=== PATIENT | female | born 1965 ===

== ENCOUNTER 2017-08-02 00:47 | Observation (INO) | payer OTHER ==
--- NOTE | 2017-08-02 01:16 | ED PDOC ---
HPI: Chest Pain Time Seen by Provider: 08/02/17 01:04 Chief Complaint (Nursing): Chest Pain Chief Complaint (Provider): chest pain History Per: Patient History/Exam Limitations: no limitations Onset/Duration Of Symptoms: Hrs (3), Waxing/Waning Current Symptoms Are (Timing): Still Present Additional History Per: Patient Additional Complaint(s): 52 y/o female presents with intermittent substernal chest pressure x 3 hours. Symptoms started while sitting down. Patient notes having to take deep breaths to get air in when pressure present. Patient took 4 baby aspirin tablets prior to arrival. Denies fever, nausea/vomiting, cough, congestion, palpitations, abdominal pain, leg pain/swelling. Patient states she has not seen a doctor in over 2 years Patient recently flew here from [place] 07/21. Past Medical History Reviewed: Historical Data, Nursing Documentation, Vital Signs Vital Signs: Last Vital Signs Temp 98.2 F 08/02/17 00:51 Pulse 75 08/02/17 00:51 Resp 16 08/02/17 00:51 BP 138/96 H 08/02/17 00:51 Pulse Ox 97 08/02/17 04:00 - Medical History PMH: No Chronic Diseases - Surgical History Surgical History: No Surg Hx - Family History Family History: States: No Known Family Hx - Social History Current smoker - smoking cessation education provided: No Alcohol: None Drugs: Denies - Home Medications Home Medications: Ambulatory Orders Medication Instructions Recorded Cholecalciferol [Vitamin D 1000 IU] 5,000 iu PO DAILY 08/02/17 Omeprazole 20 mg PO DAILY 08/02/17 - Allergies Allergies/Adverse Reactions: Allergies Allergy/AdvReac Type Severity Reaction Status Date / Time No Known Allergies Allergy Verified 08/02/17 00:50 BROOK Risk Score for UA/NSTEMI - BROOK Risk Score Age > 64: NO 3 or more CAD Risk Factors: NO Known CAD (Stenosis greater than 50%): NO Aspirin use in past 7 days: NO Severe Angina: NO EKG ST changes greater than 0.5mm: NO Positive Cardiac Marker: NO BROOK Score: 0 Risk %: 5% Review of Systems ROS Statement: Except As Marked, All Systems Reviewed And Found Negative Cardiovascular: Positive for: Chest Pain Physical Exam - Reviewed Nursing Documentation Reviewed: Yes Vital Signs Reviewed: Yes - Physical Exam Appears: Positive for: Well, Non-toxic, No Acute Distress Skin: Positive for: Normal Color Eye Exam: Positive for: Normal appearance ENT: Positive for: Normal ENT Inspection Cardiovascular/Chest: Positive for: Regular Rate, Rhythm Respiratory: Positive for: Normal Breath Sounds Gastrointestinal/Abdominal: Positive for: Normal Exam Back: Positive for: Normal Inspection Extremity: Positive for: Normal ROM Neurologic/Psych: Positive for: Alert, Oriented - Laboratory Results Result Diagrams: 08/02/17 01:15 08/02/17 01:15 - ECG ECG: Positive for: Viewed By Me (reviewed by ED attending) ECG Rhythm: Positive for: Sinus Rhythm O2 Sat by Pulse Oximetry: 97 Pulse Ox Interpretation: Normal - Radiology X-Ray: Viewed By Me X-Ray Interpretation: No Acute Disease - Progress ED Course And Treament: labs, ekg, chest xray Case discussed with Dr. Cox, medical service on-call, for placement in observation telemetry for chest pain to rule out ACS. Disposition - Clinical Impression Clinical Impression: Chest pain - Patient ED Disposition Is Patient to be Admitted: No - Disposition Disposition Time: 03:14 Condition: FAIR
[2017-08-02 01:30] LABS: BASO # 0.1 K/uL (0.0-0.2); BASO % 0.6 % (0.0-2.0); EOS # 0.5 K/uL (0.0-0.7); EOS % 6.7 % (0.0-4.0); HEMOGLOBIN 12.4 g/dL (12.0-16.0); LYMPH # 2.4 K/uL (1.0-4.3); LYMPH % 30.9 % (20.0-40.0); MEAN CELL VOLUME 83.3 fl (81.0-99.0); MEAN CORPUSCULAR HEMOGLOBIN 27.4 pg (27.0-31.0); MEAN CORPUSCULAR HGB CONC 32.9 g/dL (33.0-37.0); MEAN PLATELET VOLUME 8.1 fl (7.2-11.7); MONO # 0.4 K/uL (0.0-0.8); MONO % 5.2 % (0.0-10.0); NEUT # 4.4 K/uL (1.8-7.0); NEUT % 56.6 % (50.0-75.0); NRBC % 0.1 % (0.0-0.0); RBC 4.52 Mil/uL (3.80-5.20); RED CELL DISTRIBUTION WIDTH 12.9 % (11.5-14.5); WHITE BLOOD COUNT 7.9 K/uL (4.8-10.8)
[2017-08-02 01:42] LABS: ALB/GLOB RATIO 1.4 (1.0-2.1); ALBUMIN 4.2 g/dL (3.5-5.0); ALT/SGPT 35 U/L (9-52); AST/SGOT 24 U/L (14-36); BLOOD UREA NITROGEN 19 mg/dl (7-17); CALCIUM 9.6 mg/dL (8.4-10.2); GFR AFRICAN-AMERICAN > 60; GFR NON-AFRICAN AMERICAN > 60
--- NOTE | 2017-08-02 12:53 | CP.PCM.CON ---
History of Present Illness - History of Present Illness History of Present Illness: I was asked to see patient by Dr Cox. Patient is a 52 year old female who presents with substernal juju pressure. Symptoms occurred 2 days ago, and are described as a pressure like sensation in the center of the chest with associated dyspnea. The patient was brought to [facility] for further mgmt. Review of Systems - Constitutional Constitutional: absent: As Per HPI, Anorexia, Chills, Daytime Sleepiness, Excessive Sweating, Fatigue, Fever, Frequent Falls, Headache, Increased Appetite , Lethargy, Malaise, Night Sweats, Snoring, Sleep Apnea, Weight Gain, Weight Loss, Weakness, Other - EENT Eyes: absent: As Per HPI, Blind Spots, Blurred Vision, Change in Vision, Decreased Night Vision, Diplopia, Discharge, Dry Eye, Exophthalmos, Floaters, Irritation, Itchy Eyes, Loss of Peripheral Vision, Pain, Photophobia, Requires Corrective Lenses, Sees Flashes, Spots in Vision, Tunnel Vision, Other Visual Disturbances, Loss of Vision, Other Ears: absent: As Per HPI, Decreased Hearing, Ear Discharge, Ear Pain, Tinnitus, Abnormal Hearing, Disequilibrium, Dizziness, Other Nose/Mouth/Throat: absent: As Per HPI, Epistaxis, Nasal Congestion, Nasal Discharge, Nasal Obstruction, Nasal Trauma, Nose Pain, Post Nasal Drip, Sinus Pain, Sinus Pressure, Bleeding Gums, Change in Voice, Dental Pain, Dry Mouth, Dysphagia, Halitosis, Hoarsness, Lip Swelling, Mouth Lesions, Mouth Pain, Odynophagia, Sore Throat, Throat Swelling, Tongue Swelling, Facial Pain, Neck Pain, Neck Mass, Other - Breasts Breasts: absent: As Per HPI, Change in Shape, Mass, Pain, Nipple Discharge, Nipple Inversion, Skin Changes, Swelling, Other - Cardiovascular Cardiovascular: Chest Pain, Dyspnea - Respiratory Respiratory: Dyspnea - Gastrointestinal Gastrointestinal: absent: As Per HPI, Abdominal Pain, Belching, Bloating, Change in Bowel Habits, Change in Stool Character, Coffee Ground Emesis, Constipation, Cramping, Diarrhea, Dyspepsia, Dysphagia, Early Satiety, Excessive Flatus, Fecal Incontinence, Heartburn, Hematemesis, Hematochezia, Loose Stools, Melena, Nausea, Odynophagia, Temesmus, Vomiting, Other - Genitourinary Genitourinary: absent: As Per HPI, Change in Urinary Stream, Difficulty Urinating, Dysuria, Flank Pain, Hematuria, Pyuria, Nocturia, Urinary Incontinence, Urinary Frequency, Urinary Hesitance, Urinary Urgency, Voiding Freq/Small Amts, Freq UTI, Hx Renal/Bladder Calculi, Hx /Renal Surgery, Bladder Distension, Other - Musculoskeletal Musculoskeletal: absent: As Per HPI, Abnormal Gait, Arthralgias, Atrophy, Back Pain, Deformity, Joint Swelling, Limited Range of Motion, Loss of Height, Muscle Cramps, Muscle Weakness, Myalgias, Neck Pain, Numbness, Radiating Pain into Limb, Stiffness, Tingling, Other - Integumentary Integumentary: absent: As Per HPI, Acne, Alopecia, Bleeding Lesions, Change in Hair, Change in Nails, Change in Pigmentation, Changing Lesions, Dry Skin, Erythema, Furuncle, Hirsutism, Lesions, New Lesions, Non-Healing Lesions, Photosensitivity, Pruritus, Rash, Skin Pain, Skin Ulcer, Sores, Striae, Swelling , Unusual Bruising, Wounds, Jaundice, Other - Neurological Neurological: absent: As Per HPI, Abnormal Gait, Abnormal Hearing, Abnormal Movements, Abnormal Speech, Behavioral Changes, Burning Sensations, Confusion, Convulsions, Disequilibrium, Dizziness, Numbness, Focal Weakness, Frequent Falls , Headaches, Lack of Coordination, Loss of Vision, Memory Loss, Paresthesias, Radicular Pain, Restless Legs, Sensory Deficit, Syncope, Tingling, Tremor, Vertigo, Weakness, Other Visual Disturbances, Other - Psychiatric Psychiatric: absent: As Per HPI, Abnormal Sleep Pattern, Anhedonia, Anxiety, Auditory Hallucinations, Behavioral Changes, Change in Appetite, Change in Libido, Confusion, Depression, Difficulty Concentrating, Hallucinations, Homicidal Ideation, Hopelessness, Irritability, Memory Loss, Mood Swings, Panic Attacks, Paranoia, Suicidal Ideation, Visual Hallucinations, Tactile Hallucinations, Other - Endocrine Endocrine: absent: As Per HPI, Change in Body Appearance, Change in Libido, Cold Intolorance, Deepening of Voice, Excessive Sweating, Fatigue, Flushing, Heat Intolorance, Increase in Ring/Shoe/Hat Size, Palpitations, Polydipsia, Polyphagia, Polyuria, Other - Hematologic/Lymphatic Hematologic: absent: As Per HPI, Easy Bleeding, Easy Bruising, Lymphadenopathy, Other Past Patient History - Past Social History Smoking Status: Never Smoked - CARDIAC Hx Cardiac Disorders: No - PULMONARY Hx Respiratory Disorders: No - NEUROLOGICAL Hx Neurological Disorder: No - HEENT Hx HEENT Problems: No Other/Comment: wears eyeglasses - RENAL Hx Chronic Kidney Disease: No - ENDOCRINE/METABOLIC Hx Endocrine Disorders: No - HEMATOLOGICAL/ONCOLOGICAL Hx Blood Disorders: No - INTEGUMENTARY Hx Dermatological Problems: No - MUSCULOSKELETAL/RHEUMATOLOGICAL Hx Musculoskeletal Disorders: No Hx Falls: No - GASTROINTESTINAL Hx Gastrointestinal Disorders: No Other/Comment: ocas constipation - GENITOURINARY/GYNECOLOGICAL Hx Genitourinary Disorders: No - PSYCHIATRIC Hx Psychophysiologic Disorder: No Hx Substance Use: No - SURGICAL HISTORY Hx Surgeries: No Other/Comment: breast implant - ANESTHESIA Hx Anesthesia: Yes Hx Anesthesia Reactions: No Hx Malignant Hyperthermia: No Has any member of the family had a problem w/ anesthesia?: No Meds Allergies/Adverse Reactions: Allergies Allergy/AdvReac Type Severity Reaction Status Date / Time PORK Allergy RASH Verified 08/02/17 11:37 Physical Exam - Constitutional Appears: Non-toxic - Head Exam Head Exam: NORMAL INSPECTION - Eye Exam Eye Exam: Normal appearance - ENT Exam ENT Exam: Mucous Membranes Moist - Neck Exam Neck exam: Positive for: Normal Inspection - Respiratory Exam Respiratory Exam: NORMAL BREATHING PATTERN - Cardiovascular Exam Cardiovascular Exam: REGULAR RHYTHM - GI/Abdominal Exam GI & Abdominal Exam: Normal Bowel Sounds - Rectal Exam Rectal Exam: Deferred - Extremities Exam Extremities exam: Negative for: pedal edema - Back Exam Back exam: NORMAL INSPECTION - Neurological Exam Neurological exam: Alert, Oriented x3 - Psychiatric Exam Psychiatric exam: Normal Affect - Skin Skin Exam: Normal Color Results - Vital Signs Recent Vital Signs: Last Vital Signs Temp 97.5 F L 08/02/17 12:21 Pulse 54 L 08/02/17 12:21 Resp 18 08/02/17 12:21 BP 115/76 08/02/17 12:21 Pulse Ox 98 08/02/17 12:21 - Labs Result Diagrams: 08/02/17 01:15 08/02/17 01:15 Labs: Laboratory Results - last 24 hr 08/02/17 08/02/17 08/02/17 01:15 01:15 01:15 WBC 7.9 RBC 4.52 Hgb 12.4 Hct 37.6 MCV 83.3 MCH 27.4 MCHC 32.9 L RDW 12.9 Plt Count 208 MPV 8.1 Neut % (Auto) 56.6 Lymph % (Auto) 30.9 [place] % (Auto) 5.2 Eos % (Auto) 6.7 H Baso % (Auto) 0.6 Neut # 4.4 Lymph # 2.4 [place] # 0.4 Eos # 0.5 Baso # 0.1 D-Dimer, Quantitative 95 Sodium 143 Potassium 3.5 L Chloride 106 Carbon Dioxide 26 Anion Gap 15 BUN 19 H Creatinine 0.8 Est GFR ( Amer) > 60 Est GFR (Non-Af Amer) > 60 Random Glucose 134 H Calcium 9.6 Total Bilirubin 0.3 AST 24 ALT 35 Alkaline Phosphatase 49 Troponin I < 0.0120 Total Protein 7.3 Albumin 4.2 Globulin 3.1 Albumin/Globulin Ratio 1.4 08/02/17 08:20 WBC RBC Hgb Hct MCV MCH MCHC RDW Plt Count MPV Neut % (Auto) Lymph % (Auto) [place] % (Auto) Eos % (Auto) Baso % (Auto) Neut # Lymph # [place] # Eos # Baso # D-Dimer, Quantitative Sodium Potassium Chloride Carbon Dioxide Anion Gap BUN Creatinine Est GFR ( Amer) Est GFR (Non-Af Amer) Random Glucose Calcium Total Bilirubin AST ALT Alkaline Phosphatase Troponin I < 0.0120 Total Protein Albumin Globulin Albumin/Globulin Ratio - EKG Data EKG Interpreted by: Myself EKG shows normal: Sinus rhythm Assessment & Plan (1) Chest pain Assessment and Plan: will rule out for myocardial infrction with serial cardaic enzymes. check echo. recommend stress test. Status: Acute
--- NOTE | 2017-08-02 14:39 | CARD ---
APPROVED REPORT EXAM: Two-dimensional and M-mode echocardiogram with Doppler and color Doppler. INDICATION Chest Pain 2D DIMENSIONS IVSd1.23 (0.7-1.1cm)LVDd4.83 (3.9-5.9cm) PWd1.70 (0.7-1.1cm)IVSs1.60 (0.8-1.2cm) LVDs2.99 (2.5-4.0cm)FS (%) 38.1 % PWs1.35 (0.8-1.2cm)LVEF (%)55.0 (>50%) M-Mode DIMENSIONS Left Atrium (MM)3.56 (2.5-4.0cm)Aortic Root3.06 (2.2-3.7cm) Aortic Cusp Exc.2.13 (1.5-2.0cm) Mitral Valve MV E Vuvvzpjb27.3cm/sMV A Ebdfmyrx12.5cm/sE/A ratio1.1 TDI Lateral E' Peak V11.41cm/sE/Lateral E'5.7E/Medial E'0.0 Tricuspid Valve TR Peak Uztdybvj715st/sRAP FUWLHYRN4diCbLE Peak Gr.17mmHg [id number] LEFT VENTRICLE The left ventricle is normal size. There is mild concentric left ventricular hypertrophy. The left ventricular function is normal. The left ventricular ejection fraction is within the normal range. There is normal LV segmental wall motion. Transmitral Doppler flow pattern is Grade I-abnormal relaxation pattern. RIGHT VENTRICLE The right ventricle is normal size. There is normal right ventricular wall thickness. The right ventricular systolic function is normal. ATRIA The left atrium size is normal. The right atrium size is normal. AORTIC VALVE The aortic valve is mildly thickened. No aortic regurgitation is present. There is no aortic valvular stenosis. MITRAL VALVE The mitral valve is mildly thickened. There is no mitral valve stenosis. There is no mitral valve regurgitation noted. TRICUSPID VALVE The tricuspid valve is normal in structure. There is trace tricuspid regurgitation. PULMONIC VALVE The pulmonary valve is normal in structure. There is no pulmonic valvular regurgitation. GREAT VESSELS The aortic root is normal in size. The IVC was not visualized. PERICARDIAL EFFUSION The pericardium appears normal. <Conclusion> The left ventricle is normal size. There is mild concentric left ventricular hypertrophy. The left ventricular function is normal. The left ventricular ejection fraction is within the normal range. There is normal LV segmental wall motion. Transmitral Doppler flow pattern is Grade I-abnormal relaxation pattern.
--- NOTE | 2017-08-02 15:47 | CP.PCM.HP ---
History of Present Illness - History of Present Illness History of Present Illness: 52 yr old F presented to ED with complaint of worsening midsternal chest pressure and SOB x 3 hrs, began at rest. Denies significant PMHx. Reports she recently flew from [place] on 07/21/17. While in [place] she suffered stomach poisoning and had a syncopal episosde resulting in head trauma and a stitch on the forehead, no imaging was done at that time. Denies nausea, vomiting, cough, palpitations, abdominal pain or lower extremity pain or swelling. PMD: none in the past 2 yrs PMHx: none SurgHx: b/l silicone breast implants FMHx: mother has DM and HTN, father has HTN SocHx: denies tobacco, Etoh and drugs Medications: vit D and omeprazole Allergies: NKDA Present on Admission - Present on Admission Any Indicators Present on Admission: No History of DVT/PE: No History of Uncontrolled Diabetes: No Urinary Catheter: No Decubitus Ulcer Present: No History Surgical Site Infection Following: None Review of Systems - Review of Systems All systems: reviewed and no additional remarkable complaints except (for what is mentioned in the HPI) - Constitutional Constitutional: absent: Chills, Weakness - EENT Eyes: absent: Change in Vision Ears: absent: Ear Pain, Dizziness Nose/Mouth/Throat: absent: Nasal Congestion, Nasal Discharge - Cardiovascular Cardiovascular: Chest Pain at Rest (pressure like), Dyspnea. absent: Syncope - Respiratory Respiratory: absent: Hemoptysis - Gastrointestinal Gastrointestinal: absent: Abdominal Pain, Nausea, Vomiting - Genitourinary Genitourinary: absent: Difficulty Urinating, Dysuria - Musculoskeletal Musculoskeletal: absent: Arthralgias - Neurological Neurological: absent: Confusion, Disequilibrium, Headaches - Psychiatric Psychiatric: absent: Anxiety - Hematologic/Lymphatic Hematologic: absent: Easy Bleeding, Easy Bruising Past Patient History - Past Social History Smoking Status: Never Smoked - CARDIAC Hx Cardiac Disorders: No - PULMONARY Hx Respiratory Disorders: No - NEUROLOGICAL Hx Neurological Disorder: No - HEENT Hx HEENT Problems: No Other/Comment: wears eyeglasses - RENAL Hx Chronic Kidney Disease: No - ENDOCRINE/METABOLIC Hx Endocrine Disorders: No - HEMATOLOGICAL/ONCOLOGICAL Hx Blood Disorders: No - INTEGUMENTARY Hx Dermatological Problems: No - MUSCULOSKELETAL/RHEUMATOLOGICAL Hx Musculoskeletal Disorders: No Hx Falls: No - GASTROINTESTINAL Hx Gastrointestinal Disorders: No Other/Comment: ocas constipation - GENITOURINARY/GYNECOLOGICAL Hx Genitourinary Disorders: No - PSYCHIATRIC Hx Psychophysiologic Disorder: No Hx Substance Use: No - SURGICAL HISTORY Hx Surgeries: No Other/Comment: breast implant - ANESTHESIA Hx Anesthesia: Yes Hx Anesthesia Reactions: No Hx Malignant Hyperthermia: No Has any member of the family had a problem w/ anesthesia?: No Meds Allergies/Adverse Reactions: Allergies Allergy/AdvReac Type Severity Reaction Status Date / Time PORK Allergy RASH Verified 08/02/17 11:37 Physical Exam - Constitutional Appears: No Acute Distress - Head Exam Head Exam: NORMOCEPHALIC Additional comments: 1 cm scar on forehead - Eye Exam Eye Exam: EOMI - ENT Exam ENT Exam: Mucous Membranes Moist - Neck Exam Neck exam: Positive for: Full Rom. Negative for: Lymphadenopathy - Respiratory Exam Respiratory Exam: Clear to Auscultation Bilateral, NORMAL BREATHING PATTERN - Cardiovascular Exam Cardiovascular Exam: REGULAR RHYTHM, +S1, +S2 - GI/Abdominal Exam GI & Abdominal Exam: Normal Bowel Sounds, Soft. absent: Distended, Tenderness - Extremities Exam Extremities exam: Positive for: full ROM. Negative for: calf tenderness, pedal edema - Neurological Exam Neurological exam: Alert, CN II-XII Intact, Oriented x3 - Psychiatric Exam Psychiatric exam: Normal Affect, Normal Mood - Skin Skin Exam: Dry, Warm Results - Vital Signs Recent Vital Signs: Last Vital Signs Temp 97.7 F 08/02/17 15:36 Pulse 61 08/02/17 15:36 Resp 20 08/02/17 15:36 BP 107/69 08/02/17 15:36 Pulse Ox 97 08/02/17 15:36 - Labs Result Diagrams: 08/02/17 01:15 08/02/17 01:15 Labs: Laboratory Results - last 24 hr 08/02/17 08/02/17 08/02/17 01:15 01:15 01:15 WBC 7.9 RBC 4.52 Hgb 12.4 Hct 37.6 MCV 83.3 MCH 27.4 MCHC 32.9 L RDW 12.9 Plt Count 208 MPV 8.1 Neut % (Auto) 56.6 Lymph % (Auto) 30.9 [place] % (Auto) 5.2 Eos % (Auto) 6.7 H Baso % (Auto) 0.6 Neut # 4.4 Lymph # 2.4 [place] # 0.4 Eos # 0.5 Baso # 0.1 D-Dimer, Quantitative 95 Sodium 143 Potassium 3.5 L Chloride 106 Carbon Dioxide 26 Anion Gap 15 BUN 19 H Creatinine 0.8 Est GFR ( Amer) > 60 Est GFR (Non-Af Amer) > 60 Random Glucose 134 H Calcium 9.6 Total Bilirubin 0.3 AST 24 ALT 35 Alkaline Phosphatase 49 Troponin I < 0.0120 Total Protein 7.3 Albumin 4.2 Globulin 3.1 Albumin/Globulin Ratio 1.4 08/02/17 08:20 WBC RBC Hgb Hct MCV MCH MCHC RDW Plt Count MPV Neut % (Auto) Lymph % (Auto) [place] % (Auto) Eos % (Auto) Baso % (Auto) Neut # Lymph # [place] # Eos # Baso # D-Dimer, Quantitative Sodium Potassium Chloride Carbon Dioxide Anion Gap BUN Creatinine Est GFR ( Amer) Est GFR (Non-Af Amer) Random Glucose Calcium Total Bilirubin AST ALT Alkaline Phosphatase Troponin I < 0.0120 Total Protein Albumin Globulin Albumin/Globulin Ratio Assessment & Plan - Assessment and Plan (Free Text) Assessment: 52 yr old F admitted for pressure like chest pain and SOB x 3 hrs, rule out ACS. -admit to telemetry -f/u serial troponins, f/u lipid panel, HbA1c -cardiology consult appreciated: will follow recommendations -heart healthy diet -SCD's for DVT prophylaxis - Date & Time Date: 08/02/17 Time: 11:15
--- NOTE | 2017-08-02 15:48 | RAD ---
HISTORY: chest pain COMPARISON: No prior. TECHNIQUE: Chest PA and lateral FINDINGS: LUNGS: No active pulmonary disease. PLEURA: No significant pleural effusion identified. No pneumothorax apparent. CARDIOVASCULAR: Normal. OSSEOUS STRUCTURES: No significant abnormalities. VISUALIZED UPPER ABDOMEN: Normal. OTHER FINDINGS: None. IMPRESSION: No active disease.
[2017-08-03 06:28] LABS: HDL CHOLESTEROL 43 MG/DL (30-70)
[2017-08-03 06:39] LABS: LDL CHOLESTEROL 99 mg/dL (0-129)
--- NOTE | 2017-08-03 08:10 | CARD ---
APPROVED REPORT EKG Measurement Heart [id number] <Conclusion> Sinus bradycardia with baseline artifacts Abnormal ECG
[2017-08-03 08:14] VITALS: RESP 18
[2017-08-03] MEDS ORDERED: Pantoprazole 40 mg EC Tab PO SCH (09:00)
[2017-08-03 12:14] VITALS: BP 99/66; PULSE 63; TEMP 98; O2SAT 96
--- NOTE | 2017-08-03 13:15 | CP.PCM.DIS ---
Provider - Provider Date of Admission: 08/02/17 04:13 Attending physician: Edin Cox MD Primary care physician: none Consults: Dr. Heart-cardiology Time Spent in preparation of Discharge (in minutes): 30 Diagnosis - Discharge Diagnosis (1) Chest pain Status: Resolved Priority: Low Hospital Course - Lab Results Lab Results: Most Recent Lab Values WBC 7.9 K/uL (4.8-10.8) 08/02/17 01:15 RBC 4.52 Mil/uL (3.80-5.20) 08/02/17 01:15 Hgb 12.4 g/dL (12.0-16.0) 08/02/17 01:15 Hct 37.6 % (34.0-47.0) 08/02/17 01:15 MCV 83.3 fl (81.0-99.0) 08/02/17 01:15 MCH 27.4 pg (27.0-31.0) 08/02/17 01:15 MCHC 32.9 g/dL (33.0-37.0) L 08/02/17 01:15 RDW 12.9 % (11.5-14.5) 08/02/17 01:15 Plt Count 208 K/uL (130-400) 08/02/17 01:15 MPV 8.1 fl (7.2-11.7) 08/02/17 01:15 Neut % (Auto) 56.6 % (50.0-75.0) 08/02/17 01:15 Lymph % (Auto) 30.9 % (20.0-40.0) 08/02/17 01:15 [place] % (Auto) 5.2 % (0.0-10.0) 08/02/17 01:15 Eos % (Auto) 6.7 % (0.0-4.0) H 08/02/17 01:15 Baso % (Auto) 0.6 % (0.0-2.0) 08/02/17 01:15 Neut # 4.4 K/uL (1.8-7.0) 08/02/17 01:15 Lymph # 2.4 K/uL (1.0-4.3) 08/02/17 01:15 [place] # 0.4 K/uL (0.0-0.8) 08/02/17 01:15 Eos # 0.5 K/uL (0.0-0.7) 08/02/17 01:15 Baso # 0.1 K/uL (0.0-0.2) 08/02/17 01:15 D-Dimer, Quantitative 95 ng/mlDDU (0-230) 08/02/17 01:15 Sodium 143 mmol/l (132-148) 08/02/17 01:15 Potassium 3.5 MMOL/L (3.6-5.0) L 08/02/17 01:15 Chloride 106 mmol/L (98-107) 08/02/17 01:15 Carbon Dioxide 26 mmol/L (22-30) 08/02/17 01:15 Anion Gap 15 (10-20) 08/02/17 01:15 BUN 19 mg/dl (7-17) H 08/02/17 01:15 Creatinine 0.8 mg/dl (0.7-1.2) 08/02/17 01:15 Est GFR ( Amer) > 60 08/02/17 01:15 Est GFR (Non-Af Amer) > 60 08/02/17 01:15 Random Glucose 134 mg/dL (65-105) H 08/02/17 01:15 Hemoglobin A1c 6.1 % (4.2-6.5) 08/02/17 12:15 Calcium 9.6 mg/dL (8.4-10.2) 08/02/17 01:15 Total Bilirubin 0.3 mg/dl (0.2-1.3) 08/02/17 01:15 AST 24 U/L (14-36) 08/02/17 01:15 ALT 35 U/L (9-52) 08/02/17 01:15 Alkaline Phosphatase 49 U/L (38-126) 08/02/17 01:15 Troponin I < 0.0120 ng/mL (0.00-0.120) 08/02/17 18:02 Total Protein 7.3 G/DL (6.3-8.2) 08/02/17 01:15 Albumin 4.2 g/dL (3.5-5.0) 08/02/17 01:15 Globulin 3.1 gm/dL (2.2-3.9) 08/02/17 01:15 Albumin/Globulin Ratio 1.4 (1.0-2.1) 08/02/17 01:15 Triglycerides 160 mg/DL (0-149) H 08/03/17 05:55 Cholesterol 173 mg/dL (0-199) 08/03/17 05:55 LDL Cholesterol Direct 99 mg/dL (0-129) 08/03/17 05:55 HDL Cholesterol 43 MG/DL (30-70) 08/03/17 05:55 - Hospital Course Hospital Course: 52 yr old F admitted for pressure like chest pain and SOB. Patients' chest pain resolved, was evaluated by cardiology and exam results were within normal limits. ACS was ruled out and patient was discharged medically stable with instructions to follow up with Dr. Cox within 1 week, Dr. Heart within 1 week. - Date & Time of H&P Date of H&P: 08/02/17 Time of H&P: 15:44 Discharge Exam - Head Exam Head Exam: NORMOCEPHALIC - Eye Exam Eye Exam: EOMI - ENT Exam ENT Exam: Mucous Membranes Moist - Neck Exam Neck exam: Full Rom - Respiratory Exam Respiratory Exam: NORMAL BREATHING PATTERN - Cardiovascular Exam Cardiovascular Exam: REGULAR RHYTHM, +S1, +S2 - GI/Abdominal Exam GI & Abdominal Exam: Normal Bowel Sounds, Soft - Extremities Exam Extremities exam: full ROM - Neurological Exam Neurological exam: Alert, CN II-XII Intact, Oriented x3 - Psychiatric Exam Psychiatric exam: Normal Affect, Normal Mood - Skin Skin Exam: Dry, Intact, Normal Color, Warm Discharge Plan - Follow Up Plan Condition: FAIR Disposition: HOME/ ROUTINE Instructions: Chest Pain (DC) Additional Instructions: Activity as tolerated,heart healthy, low fat, low cholesterol diet. Follow-up with Primary Doctor in 2 weeks to call for appointment. Referrals: Russel Heart MD [Staff Provider] - Edin Cox MD [Staff Provider] - Clinical Quality Measures - Date & Time of Discharge Summary Date of Discharge Summary: 08/03/17 Time of Discharge Summary: 13:15
--- NOTE | 2017-08-03 14:25 | CARD ---
APPROVED REPORT Protocol: BINH Test Type: Treadmill Stress Test Attending Physician: Dr. Dr. Mahoney Referring Physician: Dr. Dr. Rosario Technologist: [place] Sánchez Test Indications: chest pain Medications: Omeprazole 20mg Vitamin D 5000 iu Medical History: Syncopal episode, Bilateral silicone Breast Implant Sx, Constipation Target HR: 170 bpm Resting ECG: normal Resting Heart Rate: 82 bpm Resting Blood Pressure: 121/78mmHg submaximum (85%): 145 bpm TEST SUMMARY DOAYKIOQNERRA64:020.00.01.843166/78.0. OGIJJJUJTDJVVMI15:020.00.01.279751/78.0. PRETESTHYPERV.00:020.00.01.904133/78.0. PRETESTWARM-UP43:251.00.01.269581/78.0. EXERCISESTAGE 103:001.710.04.611804/64.1. EXERCISESTAGE 203:002.512.07.2150110/72.0. EXERCISESTAGE 303:003.414.182.4908655/86.2. EXERCISESTAGE 400:284.216.545.6651617/86.1. FJYUXNFD53:060.00.01.652129/70.0. POST EXERCISE Reason for Termination: Target heart rate achieved Target HR: NoMax HR: 153 bpm90% of Maximum Predicted HR: 170 bpm Exercise duration: 4 Stage09:28 min:secExercise capacity: 10.8METs Max Blood Pressure: 165/86mmHg Blood Pressure response to exercise: normal resting BP - appropriate response Heart Rate response to exercise: appropriate Chest Pain: NononeAngina index: 0 Arrhythmia: Yesatrial premature beats-isolated ST Change: Yes1.0 mm Depression upslopingDeviation: 0 mm INTERPRETATION Stress EKG Conclusion: Normal stress test
== END 2017-08-03 13:50 | disposition home or self-care (01) ==
LOC: H.ER 00:47 → H.ERHOLD 04:13 → H.TEL 10:38
PROVIDERS: ADMIT Family Medicine; ATTEND Family Medicine
DX: R07.9 Chest pain, unspecified (principal); R06.02 Shortness of breath; Z91.018 Allergy to other foods
CPT/HCPCS: 36415; 71046; 80053; 80061; 81025; 83036; 84484; 85025; 85378; 93005; 93017; 93306; 99285; G0378